=== PATIENT | male | born 1945 | race Caucasian/White ===

== ENCOUNTER 2017-03-27 08:55 | Emergency (ER) | payer MEDICARE ==
[2017-03-27] MEDS ORDERED: Aspirin 81 MG Tab.Chew PO ONE (09:26)
--- NOTE | 2017-03-27 09:38 | EDM.PDOC ---
ED HPI GENERAL MEDICAL PROBLEM - General Chief Complaint: Chest Pain Stated Complaint: chest pain Time Seen by Provider: 03/27/17 09:17 Source of Information: Reports: Patient History Limitations: Reports: No Limitations - History of Present Illness INITIAL COMMENTS - FREE TEXT/NARRATIVE: This patient is a 72 year old pleasant male that presents to the ER. Patient reports that this morning he was out walking at about 8am. He reports he usually walks 1 mile a day, then today he made it about 4 blocks and he started having substernal chest pain into the left chest that radiated down the left arm. The patient reports that he had to stop walking. He reports that he did not have shortness of breath or nausea with this pain. Patient reports that he stopped walking, went home and took 2 nitro. He reports his pain while waling was about 8 level, after he stopped walking, his pain went to about a 7 level pain. He reports after 2 nitro his pain now in the ER is about a 4. He reports stopping walking and taking the nitro have helped his pain. He reports that he has not had to take his nitro in several weeks, and he does not take it that often. He reports that he has had this chest pain before. He reports its been over a year. He reports that he does not have history of heart attacks, stents, cardiac procedures. He reports he has also been seen in [place], [place] for the same chest pain and was prescribed his nitro for chest pain. He reports he was diagnosed with coronary artery spasms that was causing his chest pain. He reports he last had a cath done about 1 year ago in [facility] that was negative. The patient denies villa, dizziness, n, v, d, f, neck pain, neck stiffness, abd pain, urinary/bowel changes, rashes. Onset: Today Onset Date: 03/27/17 Onset Time: 08:00 Location: Reports: Chest Quality: Reports: Sharp Severity: Moderate Improves with: Reports: Medication (Nitro), Rest Worsens with: Reports: Other (Walking) Context: Reports: Exercise Associated Symptoms: Reports: Chest Pain. Denies: Confusion, Cough, cough w sputum, Diaphoresis, Fever/Chills, Headaches, Loss of Appetite, Malaise, Nausea/ Vomiting, Rash, Seizure, Shortness of Breath, Syncope, Weakness Chest Pain Score (Numeric/FACES): 6 - Related Data Allergies Allergy/AdvReac Type Severity Reaction Status Date / Time No Known Allergies Allergy Verified 03/27/17 09:08 Home Meds: Home Meds Aspirin [Adult Low Dose Aspirin EC] 81 mg PO DAILY 01/08/14 [History] Cholecalciferol (Vitamin D3) [Vitamin D] 5,000 units PO DAILY 01/08/14 [History] Fish Oil/[place]-3 Fatty Acids [Fish Oil] 1 each PO DAILY 01/08/14 [History] Levothyroxine 175 mcg PO ACBRK 01/08/14 [History] Tamsulosin [Tamsulosin 24 Hr] 0.4 mg PO DAILY 01/08/14 [History] Arginine HCl [l-Arginine] 2,000 mg PO BID 11/05/15 [History] Cyanocobalamin (Vitamin B-12) [Cyanocobalamin Injection] 1 ml IM Q30D 11/05/15 [ History] Nitroglycerin [Nitrostat] 0.4 mg SL ASDIRECTED PRN 11/05/15 [History] Social & Family History - Tobacco Use Smoking Status *Q: Former Smoker Used Tobacco, but Quit: Yes Month Tobacco Last Used: 10 years ago - Caffeine Use Caffeine Use: Reports: Coffee, Soda - Alcohol Use Days Per Week of Alcohol Use: 0 - Recreational Drug Use Recreational Drug Use: No ED ROS GENERAL - Review of Systems Review Of Systems: See Below Constitutional: Reports: No Symptoms HEENT: Reports: No Symptoms Respiratory: Reports: No Symptoms. Denies: Shortness of Breath Cardiovascular: Reports: Chest Pain. Denies: Dyspnea on Exertion, Lightheadedness, Palpitations, Syncope Endocrine: Reports: No Symptoms GI/Abdominal: Reports: No Symptoms : Reports: No Symptoms Musculoskeletal: Reports: No Symptoms Skin: Reports: No Symptoms Neurological: Reports: No Symptoms Psychiatric: Reports: No Symptoms Hematologic/Lymphatic: Reports: No Symptoms Immunologic: Reports: No Symptoms ED EXAM, GENERAL - Physical Exam Exam: See Below Exam Limited By: No Limitations General Appearance: Alert, WD/WN, No Apparent Distress Eye Exam: Bilateral Eye: Normal Inspection, PERRL Ears: Normal External Exam, Normal Canal, Hearing Grossly Normal, Normal TMs Ear Exam: Bilateral Ear: Auricle Normal, Canal Normal, TM normal Nose: Normal Inspection, Normal Mucosa, No Blood Throat/Mouth: Normal Inspection, Normal Lips, Normal Teeth, Normal Gums, Normal Oropharynx, Normal Voice, No Airway Compromise Head: Atraumatic, Normocephalic Neck: Normal Inspection, Supple, Non-Tender, Full Range of Motion Respiratory/Chest: No Respiratory Distress, Lungs Clear, Normal Breath Sounds, No Accessory Muscle Use, Chest Non-Tender Cardiovascular: Normal Peripheral Pulses, Regular Rate, Rhythm, No Edema, No Gallop, No JVD, No Murmur, No Rub Peripheral Pulses: 2+: Radial (L), Radial (R), Posterior Tibial (L), Posterior Tibial (R) GI/Abdominal: Normal Bowel Sounds, Soft, Non-Tender, No Organomegaly, No Distention, No Abnormal Bruit, No Mass, Pelvis Stable Back Exam: Normal Inspection, Full Range of Motion Extremities: Normal Inspection, Normal Range of Motion, Non-Tender, No Pedal Edema, Normal Capillary Refill Neurological: Alert, Oriented, Normal Cognition, Normal Gait, No Motor/Sensory Deficits Psychiatric: Normal Affect, Normal Mood Skin Exam: Warm, Dry, Intact, Normal Color, No Rash Lymphatic: No Adenopathy EKG INTERPRETATION EKG Date: 03/27/17 Time: 09:02 Rhythm: NSR Rate (Beats/Min): 72 [place]: Normal P-Wave: Present QRS: Normal ST-T: Normal QT: Normal Comparison: NA - No Prior EKG Course - Vital Signs Last Recorded V/S: Last Vital Signs Temp 96.6 F 03/27/17 09:11 Pulse 48 L 03/27/17 11:07 Resp 18 03/27/17 09:45 BP 145/72 H 03/27/17 11:07 Pulse Ox 100 03/27/17 09:45 - Orders/Labs/Meds Orders: Active Orders 24 hr Category Date Time Status EKG Documentation Completion [RC] STAT Care 03/27/17 09:15 Active Chest 2V [CR] Stat Exams 03/27/17 09:16 Taken Labs: Laboratory Tests 03/27/17 03/27/17 03/27/17 Range/Units 09:15 09:15 09:15 WBC 4.7 L (5.0-10.0) 10^3/uL RBC 4.06 L (4.50-6.00) 10^6/uL Hgb 13.2 L (14.0-18.0) g/dL Hct 39.4 L (40.0-54.0) % MCV 97.0 H (82.0-94.0) fL MCH 32.5 H (27.0-32.0) pg MCHC 33.5 (33.0-38.0) g/dL RDW Coeff of Tera 12.8 (11.0-15.0) % Plt Count 175 (150-400) 10^3/uL Neut % (Auto) 58.6 (35-85) % Lymph % (Auto) 29.6 (10-55) % Cotton % (Auto) 10.1 (0-16) % Eos % (Auto) 1.5 (0-5) % Baso % (Auto) 0.2 (0-3) % Neut # (Auto) 2.73 (1.80-7.00) 10^3/uL Lymph # (Auto) 1.38 (1.00-4.80) 10^3/uL Cotton # (Auto) 0.47 (0.00-0.80) 10^3/uL Eos # (Auto) 0.07 (0.00-0.45) 10^3/uL Baso # (Auto) 0.01 10^3/uL PT 10.5 (9.7-12.3) SEC INR 0.97 (0.92-1.18) APTT 26.5 (24.5-30.9) SEC Sodium 141 (136-145) mEq/L Potassium 3.5 D (3.5-5.0) mEq/L Chloride 107 H (98-106) mEq/L Carbon Dioxide 25 (21-32) mmol/L BUN 19 H (7-18) mg/dL Creatinine 1.2 (0.7-1.3) mg/dL Est Cr Clr Drug Dosing 62.87 mL/min Estimated GFR (MDRD) 60 (>=60) mL/min Glucose 119 H (75-99) mg/dL Calcium 8.7 (8.4-10.1) mg/dL Magnesium 1.9 (1.8-2.4) mg/dL Lactate Dehydrogenase 171 (100-190) U/L Creatine Kinase 86 (35-232) U/L Troponin I < 0.017 (0.00-0.06) ng/mL Ksx-[id number]-[id number] Pept 164 (0-1000) pg/nL TSH, Ultra Sensitive 1.58 (0.36-5.60) uIU/mL 03/27/17 03/27/17 Range/Units 11:12 14:15 WBC (5.0-10.0) 10^3/uL RBC (4.50-6.00) 10^6/uL Hgb (14.0-18.0) g/dL Hct (40.0-54.0) % MCV (82.0-94.0) fL MCH (27.0-32.0) pg MCHC (33.0-38.0) g/dL RDW Coeff of Tera (11.0-15.0) % Plt Count (150-400) 10^3/uL Neut % (Auto) (35-85) % Lymph % (Auto) (10-55) % Cotton % (Auto) (0-16) % Eos % (Auto) (0-5) % Baso % (Auto) (0-3) % Neut # (Auto) (1.80-7.00) 10^3/uL Lymph # (Auto) (1.00-4.80) 10^3/uL Cotton # (Auto) (0.00-0.80) 10^3/uL Eos # (Auto) (0.00-0.45) 10^3/uL Baso # (Auto) 10^3/uL PT (9.7-12.3) SEC INR (0.92-1.18) APTT (24.5-30.9) SEC Sodium (136-145) mEq/L Potassium (3.5-5.0) mEq/L Chloride (98-106) mEq/L Carbon Dioxide (21-32) mmol/L BUN (7-18) mg/dL Creatinine (0.7-1.3) mg/dL Est Cr Clr Drug Dosing mL/min Estimated GFR (MDRD) (>=60) mL/min Glucose (75-99) mg/dL Calcium (8.4-10.1) mg/dL Magnesium (1.8-2.4) mg/dL Lactate Dehydrogenase (100-190) U/L Creatine Kinase (35-232) U/L Troponin I 0.020 0.017 (0.00-0.06) ng/mL Bnd-R-Koclwnqvbli Pept (0-1000) pg/nL TSH, Ultra Sensitive (0.36-5.60) uIU/mL Meds: Medications Discontinued Medications Generic Name Dose Route Start Last Admin Trade Name Pietro PRN Reason Stop Dose Admin Aspirin 324 mg 03/27/17 09:26 03/27/17 09:39 Aspirin PO 03/27/17 09:27 324 mg ONETIME ONE Administration Nitroglycerin 0.4 mg 03/27/17 09:46 03/27/17 09:47 Nitrostat SL 03/27/17 09:57 0.4 mg Q5M PRN Administration Chest Pain - Radiology Interpretation Free Text/Narrative:: CXR: No acute changes from previous, lungs clear, no edema, no cardiac enlargement. Are granulomas. - Re-Assessments/Exams Free Text/Narrative Re-Assessment/Exam: 03/27/17 12:25 The patient is pain free after 3 nitro. The patient HR on monitor has run from 78-40. This is sinus milly. The patient denies any headache, n, v, vision changes, chest pain, shortness of breath, dizziness, lightheaded. The patient reports that he now feels like how is usually feels. He reports that he is fine and ready to go home. I have repeated a second troponin that is negative and his EKG is sinus. I have called and spoke to mangle roller Dr. Harvey at [facility]. She reported that she viewed his stress test there done 1 year ago and showed mild ischemia. She reported she did not see a cath performed. She said I could either discharge the patient home or transfer the patient for evaluation. She suggested if we did not transfer the patient, to redraw a third troponin. I did explain to her that I would discuss the patient his options. I then with Ankush GOODRICH at bedside, discussed with the patient his options of transfer now or repeat troponin. The patient reports that he does not want to be transferred. He said that he is scheduled there in about 1 week with his back doctor and does not want to make a second trip. I did explain to the patient that just because his troponin is negative and EKG is okay, does not mean he does not have blockages. I explained in detail his disease process and the reason for his chest pain with activity and nitro use. I did explain to the patient that if he does have a blockage that he could have an [place] or . He reports that he is aware that he could . He reports to me that he could today, tomorrow, or anytime. I again stressed an importance of cardiac evaluation of transfer, but the patient reports he will just have the troponin draw. He reports he will think about transfer while he waits for the third troponin draw. He is aware that could result. 03/27/17 14:46 Patient third troponin draw is negative. Discussed with patient again possible transfer options, He does not want too. He wants to go home. I will discharge. He has no complaints and has been pain free. Departure - Departure Time of Disposition: 14:47 Disposition: Home, Self-Care 01 Condition: Fair Clinical Impression: Angina Forms: ED Department Discharge Additional Instructions: Followup with mangle roller Followup with primary care provider this week Return to the ER for worsening of condition or any emergent concerns Go home and rest - My Orders Last 24 Hours: My Active Orders 03/27/17 09:15 EKG Documentation Completion [RC] STAT 03/27/17 09:16 Chest 2V [CR] Stat - Assessment/Plan Last 24 Hours: My Active Orders 03/27/17 09:15 EKG Documentation Completion [RC] STAT 03/27/17 09:16 Chest 2V [CR] Stat
[2017-03-27] MEDS ORDERED: Nitroglycerin 0.4 MG Tab.SL SL PRN (09:46)
[2017-03-27 09:48] LABS: CHLORIDE,CL 107 mEq/L (98-106); SODIUM,NA 141 mEq/L (136-145)
[2017-03-27 11:07] VITALS: BP 145/72
== END 2017-03-27 15:10 | disposition home or self-care (01) ==
LOC: CC.ED 08:55
DX: I20.9 Angina pectoris, unspecified (principal); Z79.82 Long term (current) use of aspirin; Z79.899 Other long term (current) drug therapy; Z87.891 Personal history of nicotine dependence
CPT/HCPCS: 36415; 71020; 80048; 82550; 83615; 83735; 83880; 84443; 84484; 85025; 85610; 85730; 93005; 99285; A9270; 93010

== ENCOUNTER 2017-09-17 14:00 | Emergency (ER) | payer MEDICARE ==
[2017-09-17] MEDS ORDERED: Acetaminophen/HYDROcodone 325-5 MG Tab PO ONE (14:01)
[2017-09-17 14:37] VITALS: BP 158/96
--- NOTE | 2017-09-17 14:49 | EDM.PDOC ---
ED HPI GENERAL MEDICAL PROBLEM - General Chief Complaint: Genitourinary Problem Stated Complaint: prostate pain Time Seen by Provider: 09/17/17 14:31 Source of Information: Reports: Patient, Family History Limitations: Reports: No Limitations - History of Present Illness INITIAL COMMENTS - FREE TEXT/NARRATIVE: Patient presents with abdominal discomfort/urinary retention. Patient had an outpatient procedure yesterday to have his prostrate "cleaned out" by Dr. Logan. Was sent home with the catheter and removed it as instructed this am around 0830. Has not been able to void more than a cup of urine since that time and is getting very uncomfortable. They did note small flecks of blood in the catheter bag this am but no significant bleeding. Blood pressure high on arrival, patient feels because of the discomfort. Catheter was inserted per orders prior to my arrival and is now feeling much relief, pain down to a 4. Had approximately 500 ml of dark yellow urine after placement, was able to void about 125 ml prior to the catheter being placed. Onset: Today Duration: Hour(s): Location: Reports: Abdomen Quality: Reports: Sharp Severity: Moderate Associated Symptoms: Reports: Fever/Chills. Denies: Confusion, Chest Pain, Cough, Nausea/Vomiting, Shortness of Breath, Weakness Bladder Pain Score (Numeric/FACES): 4 - Related Data Allergies Allergy/AdvReac Type Severity Reaction Status Date / Time No Known Allergies Allergy Verified 09/17/17 14:05 Home Meds: Home Meds Aspirin [Adult Low Dose Aspirin EC] 81 mg PO DAILY 01/08/14 [History] Levothyroxine 175 mcg PO ACBRK 01/08/14 [History] Tamsulosin [Tamsulosin 24 Hr] 0.4 mg PO DAILY 01/08/14 [History] Cyanocobalamin (Vitamin B-12) [Cyanocobalamin Injection] 1 ml IM Q30D 11/05/15 [ History] Nitroglycerin [Nitrostat] 0.4 mg SL ASDIRECTED PRN 11/05/15 [History] Past Medical History HEENT History: Reports: Cataract Cardiovascular History: Reports: Blood Clots/VTE/DVT Respiratory History: Reports: SOB Gastrointestinal History: Reports: Chronic Constipation Genitourinary History: Reports: Retention, Urinary Endocrine/Metabolic History: Reports: Hypothyroidism Oncologic (Cancer) History: Reports: Thyroid - Past Surgical History HEENT Surgical History: Reports: Tonsillectomy Endocrine Surgical History: Reports: Thyroidectomy Musculoskeletal Surgical History: Reports: Hip Replacement, Knee Replacement Social & Family History - Tobacco Use Smoking Status *Q: Former Smoker Used Tobacco, but Quit: Yes Month Tobacco Last Used: 10 years ago - Caffeine Use Caffeine Use: Reports: Coffee, Soda - Alcohol Use Days Per Week of Alcohol Use: 0 - Recreational Drug Use Recreational Drug Use: No ED ROS GENERAL - Review of Systems Review Of Systems: See Below Constitutional: Reports: Fever, Chills. Denies: Malaise, Weakness, Decreased Appetite HEENT: Reports: No Symptoms Respiratory: Denies: Shortness of Breath, Cough Cardiovascular: Denies: Chest Pain, Edema, Lightheadedness Endocrine: Denies: Fatigue GI/Abdominal: Reports: Abdominal Pain. Denies: Nausea, Vomiting : Reports: Urinary Retention Musculoskeletal: Reports: No Symptoms Skin: Reports: No Symptoms Neurological: Reports: No Symptoms ED EXAM, RENAL/ - Physical Exam Exam: See Below Exam Limited By: No Limitations General Appearance: Alert, WD/WN, No Apparent Distress Head: Normocephalic Neck: Normal Inspection, Supple, Non-Tender Respiratory/Chest: No Respiratory Distress, Lungs Clear, Normal Breath Sounds Cardiovascular: Regular Rate, Rhythm GI/Abdominal: Normal Bowel Sounds, Soft, Non-Tender (exam completed after catheter had been placed. No discomfort or distention.) Extremities: Normal Inspection Neurological: Alert, Oriented Skin Exam: Warm, Dry Course - Vital Signs Last Recorded V/S: Last Vital Signs Temp 101.3 F H 09/17/17 14:34 Pulse 82 09/17/17 14:34 Resp 20 09/17/17 14:34 BP 158/96 H 09/17/17 14:34 Pulse Ox 97 09/17/17 14:34 - Orders/Labs/Meds Labs: Laboratory Tests 09/17/17 Range/Units 14:37 Urine Color Rachel (YELLOW) Urine Appearance Slightly cloudy (CLEAR) Urine pH 6.0 (4.5-8.0) Ur Specific [place] 1.010 (1.003-1.020) Urine Protein 100 H (NEGATIVE) mg/dL Urine Glucose (UA) Negative (NEGATIVE) mg/dL Urine Ketones Negative (NEGATIVE) mg/dL Urine Occult Blood Large H (NEGATIVE) Urine Nitrite Negative (NEGATIVE) Urine Bilirubin Negative (NEGATIVE) Urine Urobilinogen 0.2 (0.2-1.0) EU/dL Ur Leukocyte Esterase Small H (NEGATIVE) Urine RBC 40-50 H (0-5) /HPF Urine WBC 5-10 H (0-5) /HPF Urine Sperm Few H (NOT SEEN) /HPF Meds: Medications Discontinued Medications Generic Name Dose Route Start Last Admin Trade Name Freq PRN Reason Stop Dose Admin Hydrocodone Bitart/Acetaminophen 2 packet 09/17/17 14:35 Take Home: Acetaminophen/Hydrocod, 2 Tab Pack PO 09/17/17 14:36 ONETIME ONE Departure - Departure Time of Disposition: 14:56 Disposition: Home, Self-Care 01 Clinical Impression: Postoperative urinary retention - Discharge Information Forms: ED Department Discharge Additional Instructions: 1. Push fluids 2. [place]- 1 tab every 6 hours as needed for pain 3. Continue to take Cipro as directed from Dr. Logan 4. Call Dr. Loagn's office on Tuesday for further direction regarding catheter. 5. Return or follow up for concerns.
[2017-09-17] MEDS: Take Home: Acetaminophen/HYDROcodone 325-5 MG, 2 Tab Pack PO ONE (15:06)
== END 2017-09-17 15:28 | disposition home or self-care (01) ==
LOC: CC.ED 14:00
DX: R33.9 Retention of urine, unspecified (principal); Z98.890 Other specified postprocedural states; Z79.82 Long term (current) use of aspirin; Z87.891 Personal history of nicotine dependence
CPT/HCPCS: 51702; 81001; 99284; A9270-GY